=== PATIENT | male | born 1990 | race Caucasian/White ===

== ENCOUNTER 2025-10-13 13:17 | Emergency (ER) | payer OTHER, SELFPAY ==
[2025-10-13] VITALS (11 sets, daily range): BP systolic 106–165; BP diastolic 65–95; PULSE 75–98; RESP 11–29; TEMP 36.7; O2SAT 91–100; BMI 18.3
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
[2025-10-13] MEDS: MORPHINE 2 MG/ML INJ IV ×2 (13:30)
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
--- NOTE | 2025-10-13 14:02 | PC.NURSE ---
Pt still in spinal precations and c-spine. Pain controlled, pt denies any worsening symptoms
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
== END 2025-10-13 15:24 | disposition home or self-care (01) ==
PROVIDERS: Emergency Provider Student in an Organized Health Care Education/Training Program
DX: M54.50 Low back pain, unspecified (principal); V43.52XA Car driver injured in collision with other type car in traffic accident, initial encounter
CPT/HCPCS: 71045; 72125; 72128; 72131; 72170; 96374; 99284; J2270

== ENCOUNTER 2025-10-14 12:40 | Emergency (ER) | payer OTHER, SELFPAY ==
[2025-10-14 12:43] VITALS: BP 112/70; PULSE 79; RESP 18; TEMP 36.6; O2SAT 100; BMI 18.4
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
[2025-10-14 15:10] VITALS: BP 118/76; PULSE 91; RESP 20; O2SAT 100
== END 2025-10-14 15:19 | disposition home or self-care (01) ==
PROVIDERS: Emergency Provider Family Medicine
DX: M54.50 Low back pain, unspecified (principal); V43.62XA Car passenger injured in collision with other type car in traffic accident, initial encounter; Y92.410 Unspecified street and highway as the place of occurrence of the external cause
CPT/HCPCS: 99283